=== PATIENT | male | born 1990 | race Caucasian/White ===

== ENCOUNTER 2021-12-10 12:24 | Emergency (ER) | payer BC ==
[2021-12-10] MEDS ORDERED: Ketorolac 30 MG/ML SDV IM ONE (12:53)
[2021-12-10] MEDS ORDERED: Dicyclomine 10 MG Cap PO ONE (12:53)
[2021-12-10] MEDS ORDERED: Take Home: Promethazine 25 MG, 4 Tab Pack PO ONE (12:54)
[2021-12-10] MEDS ORDERED: Take Home: Ketorolac 10 MG Tab, 4 Tab Pack PO ONE (12:55)
[2021-12-10] MEDS ORDERED: Take Home: Oseltamivir 75 MG Cap, 2 Cap Pack PO ONE (13:04)
[2021-12-10] MEDS ORDERED: Dicyclomine 10 MG Cap ONE (13:13)
[2021-12-11] MEDS ORDERED: Oseltamivir 75 MG Cap PO SCH (09:00)
== END 2021-12-10 14:10 | disposition home or self-care (01) ==
LOC: VM.ED 12:24
DX: J11.1 Influenza due to unidentified influenza virus with other respiratory manifestations (principal); R11.2 Nausea with vomiting, unspecified; M79.10 Myalgia, unspecified site; Z79.899 Other long term (current) drug therapy
CPT/HCPCS: 96372; 99283; A9270; J1885